=== PATIENT | female | born 1940 | race Caucasian/White ===

== ENCOUNTER 2023-02-21 07:53 | Outpatient (CLI) | payer MEDICARE, SELFPAY | END 2023-02-21 07:54 | disposition home or self-care (01) | LOC: OP CLINIC 07:56 | PROVIDERS: PCP Family Medicine; Visit Provider Internal Medicine Gastroenterology | DX: Z12.11 Encounter for screening for malignant neoplasm of colon (principal); K63.5 Polyp of colon; K57.30 Diverticulosis of large intestine without perforation or abscess without bleeding; Z86.010 Personal history of colon polyps | CPT/HCPCS: 45385; 88305; J2250; J3010 ==

== ENCOUNTER 2023-03-15 17:02 | Emergency (ER) | payer MEDICARE, SELFPAY ==
[2023-03-15] VITALS (7 sets, daily range): BP systolic 139–174; BP diastolic 65–78; PULSE 69–83; RESP 18; TEMP 36.5; O2SAT 92–95; BMI 28.3
[2023-03-15] MEDS: ASPIRIN 81 MG TAB.CHEW 324 MG PO (17:36)
[2023-03-15 17:50] LABS: Basophils Absolute Auto 0.01 K/uL (0.00-0.30); Basophils Percent Auto 0.1 % (0.0-3.0); Eosinophils Absolute Auto 0.23 K/uL (0.00-0.50); Eosinophils Percent Auto 3.3 % (0.0-7.0); Hematocrit 39.3 % (33.0-51.0); Hemoglobin* 12.7 gm/dL (12.0-16.0); Immature Granulocytes Abs Auto 0.06 K/uL (0.00-0.30); Immature Granulocytes Pct Auto 0.9 %; Lymphocytes Absolute Auto 2.37 K/uL (0.90-2.90); Lymphocytes Percent Auto 33.8 % (20-44); Mean Corpuscular HGB Conc 32 gm/dL (32-36); Mean Corpuscular Hemoglobin 31 pg (26-34); Mean Corpuscular Volume 95 fL (80-100); Monocytes Percent Auto 11.8 % (0.0-11.0); Neutrophils Absolute Auto 3.51 K/uL (1.7-7.0); Neutrophils Percent Auto 50.1 % (42.0-72.0); Platelet Count* 267 K/uL (140-440); Red Blood Count 4.12 m/uL (4.00-5.20); White Blood Count* 7.01 K/uL (4.50-11.00)
[2023-03-15 17:54] LABS: Slide Review Reflex No
[2023-03-15 18:02] LABS: Chloride* 103 mmol/L (96-114); Sodium* 140 mmol/L (135-149)
[2023-03-15 18:05] LABS: Creatinine* 0.7 mg/dL (0.5-1.5); Est. Creatinine Clearance* 37.12; Estimated Glomerular Filt Rate 87 ml/min
[2023-03-15 18:06] LABS: Blood Urea Nitrogen* 15 mg/dL (7-30); Calcium* 9.4 mg/dL (8.4-10.6); Carbon Dioxide* 28 mmol/L (20-32); Glucose* 104 mg/dL (60-115)
[2023-03-15 18:19] LABS: Troponin I* < 0.01 ng/mL (0.01-0.04)
--- NOTE | 2023-03-15 20:32 | ED_ITS ---
HPI - General Adult General Date Seen: 03/15/23 Chief complaint: Chest Pain Stated complaint: chest pain Time Seen by Provider: 03/15/23 17:03 Source: patient Mode of arrival: ambulatory Limitations: no limitations History of Present Illness HPI narrative: Patient is an 82-year-old female who comes in with chest pain that has been on and off over the past 6-8 hours. There was no associated diaphoresis or dyspnea. The pain was not exertional. It came on while she was sitting and watching TV. She did have chili for lunch but that is not unusual for her. She does occasionally have some acid reflux but does not take medication for regularly. 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 Her blood pressure has been well controlled with her current medication. She takes losartan and simvastatin. She no longer takes aspirin. She is currently pain-free and just wanted to get checked out. Related Data Previous Rx's Medication Instructions Recorded omeprazole 20 mg capsule,delayed 20 mg PO DAILY #30 caps 03/15/23 release Allergies Allergy/AdvReac Type Severity Reaction Status Date / Time sertraline Allergy Diarrhea Verified 02/21/23 08:18 Review of Systems Narrative: Review of systems is outlined above otherwise noted to be negative. [facility] Medical History (Updated 03/15/23 @ 20:39 by Ned Vicente MD) Vitamin D deficiency ?E55.9 - Vitamin D deficiency, unspecified (ICD-10) Osteopenia ?M85.80 - Other specified disorders of bone density and structure, unspecified site (ICD-10) Hyperlipidemia ?E78.5 - Hyperlipidemia, unspecified (ICD-10) Hypertension ?I10 - Essential (primary) hypertension (ICD-10) GERD (gastroesophageal reflux disease) ?K21.9 - Gastro-esophageal reflux disease without esophagitis (ICD-10) Family History (Updated 03/15/23 @ 20:38 by Ned Vicente MD) Father Stroke Maternal Grandmother Stroke Social History Smoking Status: Never smoker Do you use any of these nicotine containing products: None Second hand tobacco smoke exposure: No How often do you have a drink containing alcohol: 4 or more times a week How many standard drinks containing alcohol do you have on a typical day: 1 or 2 How often do you have six or more drinks on one occasion: Never AUDIT-C Alcohol total score: 4 Non-prescribed substance use: denies use service: No Exam Const: Vital Signs, click to edit/add: Vital Signs - 24 hr 03/15/23 17:08 03/15/23 17:21 03/15/23 17:30 Temperature 97.7 F Pulse Rate 83 77 Pulse Rate [Pulse Oximeter] 82 Respiratory Rate 18 Blood Pressure Blood Pressure [Le ft Upper Arm] 174/78 H Pulse Oximetry 94 95 93 Oxygen Delivery Me thod Room Air 03/15/23 17:37 03/15/23 17:38 03/15/23 18:00 Temperature Pulse Rate 73 77 74 Pulse Rate [Pulse Oximeter] Respiratory Rate Blood Pressure 148/75 H Blood Pressure [Le ft Upper Arm] Pulse Oximetry 92 93 92 Oxygen Delivery Me thod 03/15/23 18:02 Temperature Pulse Rate 69 Pulse Rate [Pulse Oximeter] Respiratory Rate Blood Pressure 139/65 Blood Pressure [Le ft Upper Arm] Pulse Oximetry 93 Oxygen Delivery Me thod Course Course Hospital Course: Patient is seen and examined. EKG shows normal sinus rhythm with a left bundle branch block and a rate of 77. Labs are ordered. She is given aspirin 325 mg orally. Reevaluation(s) Reevaluation #1: Her blood pressure has normalized without treatment. CBC and BMP are completely normal. Troponin is negative. She had no recurrence of pain. Vital Signs Vital signs: Initial Vital Signs Temperature 97.7 F 03/15/23 17:08 Temperature Source Temporal Artery Scan 03/15/23 17:08 Pulse Rate 82 03/15/23 17:08 Pulse Rhythm Regular 03/15/23 17:08 Respiratory Rate 18 03/15/23 17:08 Blood Pressure 174/78 H 03/15/23 17:08 Blood Pressure Mean 110 H 03/15/23 17:08 Blood Pressure Position Supine 03/15/23 17:08 Pulse Oximetry 94 03/15/23 17:08 Oxygen Delivery Method Room Air 03/15/23 17:08 Vital Signs Temperature 97.7 F 03/15/23 17:08 Pulse Rate 82 03/15/23 17:08 Respiratory Rate 18 03/15/23 17:08 Blood Pressure 174/78 H 03/15/23 17:08 Pulse Oximetry 94 03/15/23 17:08 Oxygen Delivery Method Room Air 03/15/23 17:08 Temperature 97.7 F 03/15/23 17:08 Pulse Rate 69 03/15/23 18:02 Respiratory Rate 18 03/15/23 17:08 Blood Pressure 139/65 03/15/23 18:02 Pulse Oximetry 93 03/15/23 18:02 Oxygen Delivery Method Room Air 03/15/23 17:08 Medical Decision Making MDM Narrative Medical decision making narrative: Patient's chest pain is atypical for angina. She does not have an exertional component. This certainly could be GI. I think she warrants a nuclear stress test and she will follow-up with her PCP to get that scheduled. She will return to the emergency department if she has recurrent pain. I did ask her to start taking a baby aspirin again until this issue is sorted out. Lab Data Labs: Lab Results 03/15/23 Range/Units 17:43 WBC 7.01 (4.50-11.00) K/uL RBC 4.12 (4.00-5.20) m/uL Hgb 12.7 (12.0-16.0) gm/dL Hct 39.3 (33.0-51.0) % MCV 95 (80-100) fL MCH 31 (26-34) pg MCHC 32 (32-36) gm/dL RDW Coeff of Makenna 13.0 (11.5-15.5) % Plt Count 267 (140-440) K/uL Neut % (Auto) 50.1 (42.0-72.0) % Lymph % (Auto) 33.8 (20-44) % [place] % (Auto) 11.8 H (0.0-11.0) % Eos % (Auto) 3.3 (0.0-7.0) % Baso % (Auto) 0.1 (0.0-3.0) % Neut # (Auto) 3.51 (1.7-7.0) K/uL Lymph # (Auto) 2.37 (0.90-2.90) K/uL [place] # (Auto) 0.80 (0.00-0.90) K/UL Eos # (Auto) 0.23 (0.00-0.50) K/uL Baso # (Auto) 0.01 (0.00-0.30) K/uL Sodium 140 (135-149) mmol/L Potassium 4.0 (3.6-5.1) mmol/L Chloride 103 (96-114) mmol/L Carbon Dioxide 28 (20-32) mmol/L BUN 15 (7-30) mg/dL Creatinine 0.7 (0.5-1.5) mg/dL Estimated Creat Clear 37.12 Estimated GFR 87 ml/min Glucose 104 (60-115) mg/dL Calcium 9.4 (8.4-10.6) mg/dL Troponin I < 0.01 L (0.01-0.04) ng/mL Discharge Plan Discharge Clinical Impression: Chest pain Qualifiers: Chest pain type: precordial pain Qualified Code(s): R07.2 - Precordial pain Patient Disposition: Home, Self-Care Condition: Stable Instructions: Chest Pain (ED) Additional Instructions: Continue current meds. Start taking a baby Aspirin daily. Start taking Omeprazole 20 mg daily. Avoid spicy foods. Follow up with Dr Patton in 2-3 days to discuss a nuclear stress test. Return to the ER for recurrent chest pain. Prescriptions: New omeprazole 20 mg capsule,delayed release(DR/EC) 20 mg PO DAILY Qty: 30 0RF Follow Up/Referrals: Jennifer Patton DO [Primary Care Provider] - Stand Alone Forms: [employer] Info Instructions
== END 2023-03-15 18:38 | disposition home or self-care (01) ==
PROVIDERS: Emergency Provider Family Medicine; PCP Family Medicine
DX: R07.9 Chest pain, unspecified (principal)
CPT/HCPCS: 36415; 80048; 84484; 85025; 99283; A9270